=== PATIENT | female | born 1980 | race Two or more races ===

== ENCOUNTER → 2016-07-31 | Outpatient (CLI) | payer OTHER ==
--- NOTE | 2016-07-31 15:14 | REP ---
Clinical: Shortness of breath. Technique: PA and lateral. Comparison: None. Findings: Subtle basilar atelectasis cannot be excluded. No focal consolidation, effusion, or pneumothorax. Mediastinum and cardiac silhouette normal. Skeletal structures intact. Impression: Relatively normal examination. However, subtle basilar atelectasis cannot be excluded. Signed by Olu Ellsworth MD 07/31/2016 03:05 P
== END ==
LOC: M LRY 14:50
PROVIDERS: ATTEND Nurse Practitioner Family
DX: R06.02 Shortness of breath (principal)
CPT/HCPCS: 71020; G0463